=== PATIENT | female | born 1985 | race Caucasian/White ===

== ENCOUNTER 2017-09-26 19:07 | Emergency (ER) | payer OTHER ==
[~2017-09-26] VITALS: Ht 154.9 cm; Wt 45.4 kg
[2017-09-26] MEDS ORDERED: KEFLEX PO STA (20:34)
[2017-09-26] MEDS ORDERED: KEFLEX PO ONE (20:39)
--- NOTE | 2017-09-26 20:41 | ER.PDOC ---
General Chief Complaint: General Complaint Stated Complaint: MASTITIS TRAVEL OUT OF US: No Time seen by MD: 20:36 Source: patient Exam Limitations: no limitations History of Present Illness Initial Comments 31 year old white female with bilateral breast pain and engorgement since this am. 9 weeks post and breast feeds her baby. Breast milk is draining well except that breast feels engorged and warm this am. No fever, no chills. Timing/Duration: other (this am) Severity: moderate Associated Symptoms: denies symptoms Allergies: Coded Allergies: No Known Allergies (Unverified , 12/25/16) Past Medical History Medical History: no pertinent history Surgical History: no surgical history LMP (females 10-50): BREAST FEEDING Family History Significant Family History: no pertinent family hx Social History Smoking: non-smoker Alcohol Use: none Drug Use: none Review of Systems Constitutional: no symptoms reported EENTM: no symptoms reported Respiratory: no symptoms reported Cardiovascular: no symptoms reported Gastrointestinal: no symptoms reported Genitourinary: no symptoms reported Musculoskeletal: no symptoms reported Skin: no symptoms reported Psychiatric/Neurological: no symptoms reported Hematologic/Lymphatic: no symptoms reported Immunological/Allergic: no symptoms reported Physical Exam General Appearance: No Apparent Distress, WD/WN EENT: eyes nml inspection, nml ENT inspection, pharynx nml Neck: Non-Tender, Full Range of Motion, Supple, Normal Inspection Respiratory: chest non-tender, lungs clear, normal breath sounds, other ( breast feels warm and tender especially along the lower half) CVS: reg rate & rhythm, no murmur, no gallop, pulses nml, nml capillary refill Gastrointestinal: Normal Bowel Sounds, No Organomegaly, No Pulsatile Mass, Non Tender Back: Normal Inspection, No CVA Tenderness, No Vertebral Tenderness Extremities: Normal Range of Motion, Non-Tender, Normal Inspection, No Pedal Edema, No Calf Tenderness 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
[2017-09-26 20:47] VITALS: BP 94/58
== END 2017-09-26 20:46 | disposition home or self-care (01) ==
LOC: ER 19:07
DX: N61.0 Mastitis without abscess (principal)
CPT/HCPCS: 99283

== ENCOUNTER → 2018-06-25 | Outpatient (CLI) | payer MEDICAID ==
--- NOTE | 2018-06-25 16:33 | DIREP ---
PROCEDURE:US PELVIS COMPLETE COMPARISON:None. INDICATIONS:R10.2 PELVIC PAIN TECHNIQUE:Pelvic ultrasound using transabdominal technique. Endovaginal images were also obtained for better assessment of the uterus and adnexa. FINDINGS: LMP: 06/22/18 UTERUS:Size is 6.5 x 4.4 x 3.6 cm. The myometrium is homogeneous. ENDOMETRIUM:Thickness is 0.3 cm. RIGHT OVARY:Normal appearance. Size is 3.4 x 1.7 x 1.2 cm. LEFT OVARY:Normal appearance. Size is 3.7 x 1.7 x 1.8 cm. CUL-DE-SAC:Normal. OTHER:Negative. CONCLUSION:Normal examination. Dictated by: JOHNATHAN Physician on 06/25/2018 at 04:11 PM ac
== END | disposition home or self-care (01) ==
LOC: RAD 14:43
PROVIDERS: ATTEND Nurse Practitioner Family
DX: R10.2 Pelvic and perineal pain (principal)
CPT/HCPCS: 76830; 76856